=== PATIENT | female | born 1950 | race Caucasian/White ===

== ENCOUNTER 2022-06-13 09:02 | Emergency (ER) | payer OTHER ==
[~2022-06-13] VITALS: Ht 154.9 cm; Wt 94.3 kg
[2022-06-13] MEDS ORDERED: ATENOLOL50 MG PO (09:21)
[2022-06-13] MEDS ORDERED: IRBESARTAN300 MG PO (09:21)
[2022-06-13] MEDS ORDERED: GABAPENTIN400 MG PO (09:21)
[2022-06-13] MEDS ORDERED: ATORVASTATIN CA20 MG PO (09:21)
[2022-06-13] MEDS ORDERED: CIPRO500 MG PO (13:12)
[2022-06-13] MEDS ORDERED: DICLOFENAC SODI50 MG PO (13:12)
[2022-06-13] MEDS ORDERED: NORFLEX100MG PO (13:12)
== END 2022-06-13 13:21 | disposition home or self-care (01) ==
LOC: ER 09:02
DX: R10.31 Right lower quadrant pain (principal); I10 Essential (primary) hypertension